=== PATIENT | female | born 1950 | race African-American/Black ===

== ENCOUNTER 2019-04-20 15:58 | Emergency (ER) | payer MEDICARE ==
[~2019-04-20] VITALS: Ht 167.6 cm; Wt 69.0 kg
[2019-04-20] MEDS ORDERED: IBUPROFEN 600MG TABLET PO ONE (19:15)
[2019-04-20 19:23] VITALS: BP 170/81
== END 2019-04-20 19:24 | disposition home or self-care (01) ==
LOC: ER 15:58
DX: M79.18 Myalgia, other site (principal); I10 Essential (primary) hypertension; E78.00 Pure hypercholesterolemia, unspecified; V43.52XA Car driver injured in collision with other type car in traffic accident, initial encounter; Y93.9 Activity, unspecified; Y92.410 Unspecified street and highway as the place of occurrence of the external cause
CPT/HCPCS: 99283